=== PATIENT | male | born 1950 | race Two or more races ===

== ENCOUNTER 2023-09-01 16:29 | Inpatient (IN) | payer MEDICARE, OTHER ==
[~2023-09-01] VITALS: Ht 177.8 cm; Wt 89.5 kg
[2023-09-01 16:57] VITALS: PULSE 70; RESP 18; O2SAT 18
[2023-09-01 17:10] LABS: Basophils # (auto) 0 10 ^3/uL (0-0.2); Basophils % (auto) 0.2 % (0.0-2.0); Eosinophils # (auto) 0 10 ^3/uL (0-0.8); Eosinophils % (auto) 0.3 % (0.0-7.0); Hematocrit 41.3 % (41.0-53.0); Hemoglobin 13.8 g/dL (13.5-17.5); Lymphocytes # (auto) 0.7 10 ^3/uL (0.4-5.4); Lymphocytes % (auto) 5.2 % (10.0-50.0); Mean Corpuscular Hemoglobin 30.5 pg (28.0-32.0); Mean Corpuscular Hgb Conc. 33.5 g/dL (32.0-36.0); Mean Corpuscular Volume 91.1 fL (80.0-100.0); Monocytes # (auto) 0.6 10 ^3/uL (0-1.3); Neutrophils # (auto) 12.8 10 ^3/uL (1.6-8.6); Neutrophils % (auto) 90.3 % (37.0-80.0); Red Blood Cells 4.53 10^6/uL (4.5-5.90); Red Cell Distribution Width 14.1 % (11.8-14.3); White Blood Cell 14.2 10^3/uL (4.4-10.8)
[2023-09-01 17:29] LABS: INR 1.03 (0.9-1.15); Partial Thromboplastin Time 22.9 SEC (24.5-34.5); Prothrombin Time 10.9 sec (9.3-11.8)
[2023-09-01 17:36] LABS: Alanine Aminotransferase 20 U/L (7-40); Albumin 4.4 g/dL (3.2-4.8); Alkaline Phosphatase 49 U/L (46-116); Anion Gap 9 (5-15); Aspartate Aminotransferase 23 U/L (13-40); BUN/Creatinine Ratio 9.9 (10.0-20.0); Bilirubin, Total 0.4 mg/dL (0.2-1.0); Blood Urea Nitrogen 9 mg/dL (9-23); Calcium 9.3 mg/dL (8.5-10.1); Carbon Dioxide 23 mmol/L (20-30); Chloride 110 mmol/L (98-107); Glucose 112 mg/dL (74-106); Potassium 3.8 mmol/L (3.5-5.1); Sodium 142 mmol/L (136-145); Total Protein 6.4 g/dL (5.7-8.2)
[2023-09-01] MEDS ORDERED: DOCUSATE SOD 100 MG CAP PO PRN (19:00)
[2023-09-01] MEDS ORDERED: MORPHINE SULFATE INJ 2 MG/ml SYRG IV PRN (19:00)
[2023-09-01] MEDS ORDERED: ALBUTEROL SULF 2.5 MG/0.5ML(0.5%) NEB SOLN NEB PRN (19:00)
[2023-09-01] MEDS ORDERED: NITROGLYCERIN 0.4 MG SL TAB SL PRN (19:00)
[2023-09-01] MEDS ORDERED: ONDANSETRON HCL 4 MG/2 ML VIAL IV PRN (19:00)
[2023-09-01] MEDS ORDERED: IPRATROPIUM BROM 0.5 MG/2.5ML INH SOL NEB PRN (19:00)
[2023-09-01] MEDS ORDERED: hydrALAZINE HCL 20 MG/ML VL IV PRN (19:00)
[2023-09-01] MEDS ORDERED: ACETAMINOPHEN 325 MG TAB PO PRN (19:00)
[2023-09-01] MEDS: cefTRIAXone 1GM/50ML D5W 50 ML IV ONE ×2 (19:05→19:41)
[2023-09-01] MEDS: fentaNYL CITRATE 100 MCG/2 ML VL IV ONE (19:10)
[2023-09-01 19:14] VITALS: BP 127/65; PULSE 86; RESP 14; TEMP 98.2; O2SAT 95
[2023-09-01] MEDS: IOHEXOL 350 MG/ML 100ML IJ ONE (19:18)
[2023-09-01] MEDS: SODIUM CHLORIDE 0.9% 500 ML IV ONE (19:18)
[2023-09-01] MEDS ORDERED: AZITHROMYCIN 500MG/ 250ML 250 ML IV ONE (19:30)
[2023-09-01 19:48] VITALS: O2SAT 97
[2023-09-01] MEDS: AZITHROMYCIN 500MG/ 250ML 250 ML IV ONE (20:21)
[2023-09-01] MEDS: SODIUM CHLORIDE 0.9% 1,000 ML IV ONE (20:57)
[2023-09-01] MEDS: ATORVASTATIN 20 MG TAB PO SCH (23:29)
[2023-09-02] VITALS (13 sets, daily range): BP systolic 103–151; BP diastolic 60–88; PULSE 58–84; RESP 16–22; TEMP 36.7; O2SAT 92–100
[2023-09-02] MEDS ORDERED: AMLO1TAB21 PO (01:38)
[2023-09-02] MEDS ORDERED: LISI-285 PO (01:38)
[2023-09-02] MEDS: HYDROcodone-ACET 5/325MG TAB PO PRN (05:09)
[2023-09-02 06:54] LABS: Magnesium 1.9 mg/dL (1.6-2.6)
[2023-09-02 07:00] LABS: Basophils # (auto) 0 10 ^3/uL (0-0.2); Basophils % (auto) 0.4 % (0.0-2.0); Eosinophils # (auto) 0.1 10 ^3/uL (0-0.8); Eosinophils % (auto) 0.9 % (0.0-7.0); Hematocrit 41.3 % (41.0-53.0); Hemoglobin 13.9 g/dL (13.5-17.5); Lymphocytes # (auto) 1.2 10 ^3/uL (0.4-5.4); Lymphocytes % (auto) 13.6 % (10.0-50.0); Mean Corpuscular Hemoglobin 30.7 pg (28.0-32.0); Mean Corpuscular Hgb Conc. 33.7 g/dL (32.0-36.0); Monocytes # (auto) 0.6 10 ^3/uL (0-1.3); Neutrophils % (auto) 78.1 % (37.0-80.0); Nucleated Red Blood Cells % 0.1 %; Red Blood Cells 4.54 10^6/uL (4.5-5.90); Red Cell Distribution Width 14.2 % (11.8-14.3)
[2023-09-02 07:26] LABS: Alanine Aminotransferase 18 U/L (7-40); Albumin 4.2 g/dL (3.2-4.8); Alkaline Phosphatase 48 U/L (46-116); Anion Gap 7 (5-15); BUN/Creatinine Ratio 7.9 (10.0-20.0); Blood Urea Nitrogen 6 mg/dL (9-23); Calcium 9.2 mg/dL (8.5-10.1); Carbon Dioxide 24 mmol/L (20-30); Chloride 109 mmol/L (98-107); Glucose 100 mg/dL (74-106); LDL Cholesterol 57 mg/dL (< 100); Potassium 3.7 mmol/L (3.5-5.1); Sodium 140 mmol/L (136-145); Triglycerides 97 mg/dL (< 150)
[2023-09-02 07:27] LABS: Bilirubin, Total 0.8 mg/dL (0.2-1.0); Cholesterol 128 mg/dL (< 200); HDL Cholesterol 56 mg/dL (40-59); Total Protein 6.4 g/dL (5.7-8.2)
[2023-09-02 07:41] LABS: Aspartate Aminotransferase 20 U/L (13-40)
[2023-09-02] MEDS: ENOXAPARIN SOD 40 MG/0.4 ML SYRINGE SC SCH (09:14)
[2023-09-02] MEDS: ASPirin-EC 81 mg tab PO SCH (09:14)
[2023-09-02] MEDS: cefTRIAXone 1GM/50ML D5W 50 ML IV SCH (09:14)
[2023-09-02] MEDS: AZITHROMYCIN 500MG/ 250ML 250 ML IV SCH (10:21)
[2023-09-02] MEDS: MORPHINE SULFATE INJ 2 MG/ml SYRG IV PRN ×2 (10:56→19:45)
[2023-09-02] MEDS: LISINOPRIL 5 MG TAB PO ONE (11:30)
[2023-09-02 12:18] LABS: Urine Bacteria None Seen /hpf (None Seen)
[2023-09-02 12:39] LABS: Urine Blood Negative /uL (Negative); Urine Clarity Clear (Clear); Urine Color Light-Yellow (Yellow); Urine Mucus FEW (None Seen); Urine Protein, UAD Negative (Negative); Urine Specific Gravity 1.021 (1.001-1.035); Urine Urobilinogen Normal (Negative); Urine WBC <1 /hpf (0 - 3)
[2023-09-02 12:40] LABS: Amphetamine Screen, Urine Neg (NEGATIVE); Barbiturate Scree,Urine Neg (NEGATIVE)
[2023-09-02 12:41] LABS: Benzodiazephine Screen, Urine Neg (NEGATIVE); Cannabinoid Screen, Urine Neg (NEGATIVE); Cocaine Screen, Urine Neg (NEGATIVE); Opiate Scree,Urine Neg (NEGATIVE); Phencyclidine Screen, Urine Neg (NEGATIVE)
[2023-09-02] MEDS: ATORVASTATIN 20 MG TAB PO SCH (21:53)
[2023-09-02 22:55] LABS: COVID19 ANTIGEN SOFIA FIA NEGATIVE (NEGATIVE)
[2023-09-03] VITALS (7 sets, daily range): BP systolic 124–131; BP diastolic 66–79; PULSE 54–71; RESP 19–22; TEMP 36.5; O2SAT 96–100
[2023-09-03 07:13] LABS: Basophils # (auto) 0 10 ^3/uL (0-0.2); Basophils % (auto) 0.6 % (0.0-2.0); Eosinophils # (auto) 0.2 10 ^3/uL (0-0.8); Eosinophils % (auto) 2.1 % (0.0-7.0); Hematocrit 41.5 % (41.0-53.0); Hemoglobin 14.1 g/dL (13.5-17.5); Lymphocytes # (auto) 1.2 10 ^3/uL (0.4-5.4); Lymphocytes % (auto) 16.9 % (10.0-50.0); Mean Corpuscular Hemoglobin 31.1 pg (28.0-32.0); Mean Corpuscular Hgb Conc. 34.1 g/dL (32.0-36.0); Mean Corpuscular Volume 91.3 fL (80.0-100.0); Monocytes # (auto) 0.6 10 ^3/uL (0-1.3); Monocytes % (auto) 8.5 % (0.0-12.0); Neutrophils # (auto) 5.3 10 ^3/uL (1.6-8.6); Neutrophils % (auto) 71.9 % (37.0-80.0); Red Blood Cells 4.54 10^6/uL (4.5-5.90); Red Cell Distribution Width 14.1 % (11.8-14.3); White Blood Cell 7.4 10^3/uL (4.4-10.8)
[2023-09-03 07:35] LABS: Chloride 108 mmol/L (98-107); Potassium 4.7 mmol/L (3.5-5.1); Sodium 139 mmol/L (136-145)
[2023-09-03 07:36] LABS: Calcium 9.5 mg/dL (8.5-10.1)
[2023-09-03 07:40] LABS: Carbon Dioxide 26 mmol/L (20-30)
[2023-09-03 07:41] LABS: BUN/Creatinine Ratio 12.5 (10.0-20.0); Blood Urea Nitrogen 10 mg/dL (9-23); Glucose 114 mg/dL (74-106)
[2023-09-03 08:34] LABS: Anion Gap 5 (5-15)
[2023-09-03] MEDS ORDERED: ATOR20TA50 PO (08:55)
[2023-09-03] MEDS ORDERED: ASPI-543 PO (08:55)
[2023-09-03] MEDS: LISINOPRIL 5 MG TAB PO SCH (09:41)
[2023-09-03] MEDS ORDERED: MUPI2CRE17 EX (14:38)
== END 2023-09-03 12:16 | disposition home or self-care (01) | DRG 204 ==
LOC: EDBD 16:29 → ER 16:29 → TELE 18:56 → TELE-WESTW 18:56
PROVIDERS: ADMIT Internal Medicine Pulmonary Disease; ATTEND Emergency Medicine
DX: R07.81 Pleurodynia (principal); J93.9 Pneumothorax, unspecified; D72.829 Elevated white blood cell count, unspecified; I10 Essential (primary) hypertension; K20.90 Esophagitis, unspecified without bleeding; E78.5 Hyperlipidemia, unspecified; Z20.822 Contact with and (suspected) exposure to COVID-19; N40.0 Benign prostatic hyperplasia without lower urinary tract symptoms; R09.89 Other specified symptoms and signs involving the circulatory and respiratory systems; Z91.148 Patient's other noncompliance with medication regimen for other reason
CPT/HCPCS: 36415; 71045; 71275; 74177; 80048; 80053; 80061; 80307; 81001; 83036; 83735; 83880; 84443; 84484; 85025; 85610; 85730; 87040; 87070; 87081; 87205; 87426; 93005; 93306; 96374; G0378